=== PATIENT | male | born 1940 | race Caucasian/White ===

== ENCOUNTER → 2019-01-04 | Outpatient (REF) | payer MEDICARE, BC ==
[~2019-01-04] MED LIST: ADVAIR DISK1 INH; ASPIRIN LOW DOS81 M1 PO; ASTEPRO0.15 %; B-12 TR1000 MCG PO; CLARINEX5 MG PO; DEMADEX10 M1 PO; FLOMAX0.4 M1 PO; HUMALOG KWI100 MG/ML SC; LANTUS100 MG/ML SC; LIPITOR10 M1 PO; MULTI VIT PO; NASONEX50 MCG/AC NAB; PHOSPHATE; POTASSIUM CHLO20 ME1 PO; PREVACID30 M1 PO; PROBIOTIC ACIDOPHILU PO; SINGULAIR5 MG PO; ULTRAM50 M1 PO; ULTRAM50 MG PO; [UNRECOGNIZED DRUG - OTHER]
[2019-01-04 09:05] LABS: HEMATOCRIT 42.2 % (39.0-50.0); HEMOGLOBIN 13.7 g/dl (14.0-18.0); MEAN CELL VOLUME 90.4 fL CALC (80.0-100.0); MEAN CORPUSCULAR HGB 29.3 pG CALC (26.0-32.0); MEAN CORPUSCULAR HGB CONC 32.5 g/L CALC (32.0-36.0); RED BLOOD COUNT 4.67 mill/uL (4.70-6.10); RED CELL DISTRI WIDTH 13.1 % (11.5-15.5)
[2019-01-04 09:15] LABS: ALBUMIN 4.2 g/dL (3.2-5.0); ALKALINE PHOSPHATASE 107 u/l (38-126); ANION GAP 13 (6-22 (CALC)); BILIRUBIN, TOTAL 0.4 mg/dL (0.0-1.4); BUN 12 mg/dL (8-23); BUN/CREATININE RATIO 17 (12-20 (CALC)); CARBON DIOXIDE 29 mmol/l (22-30); CHLORIDE 103 mmol/l (95-108); CREATININE 0.7 mg/dL (0.7-1.3); GFR > 60 ML/MIN (>=60 (CALC)); GFR FOR AFR.AMER. > 60 ML/MIN (>=60 (CALC)); POTASSIUM 4.6 mmol/l (3.5-5.1); SGOT/AST 26 u/l (19-48); SODIUM 141 mmol/l (137-146); TOTAL PROTEIN 6.7 g/dL (6.3-8.2)
== END | disposition home or self-care (01) ==
LOC: LAB 08:29
PROVIDERS: ATTEND Internal Medicine
DX: E11.42 Type 2 diabetes mellitus with diabetic polyneuropathy (principal)